=== PATIENT | female | born 1950 | race Two or more races ===

== ENCOUNTER 2018-09-25 10:31 | Emergency (ER) | payer OTHER ==
[~2018-09-25] VITALS: Ht 165.1 cm; Wt 88.0 kg
[~2018-09-25 10:31] MED LIST: CHOL100044 PO; GABA-531 PO; IBUP-2028 PO; INSU100V3 SUBCUT; LOSA25TA26 PO; METF-416 PO; NPH,100V SQ; SERT50TA12 PO; SIMV40TA5 PO; TRAM50TA3 PO
[2018-09-25] MEDS ORDERED: SODIUM CHLORIDE 0.9% 1,000 ML IV ONE (11:25)
[2018-09-25] MEDS ORDERED: KETOROLAC 30MG/ML VIAL IV STA (11:25)
[2018-09-25] MEDS ORDERED: ONDANSETRON HCL 4MG/2ML INJ IV STA (11:25)
[2018-09-25 12:25] LABS: BASOPHILS % 0.7 % (0.0-2.0); EOSINOPHILS % 2.4 % (0.0-5.0); HEMATOCRIT. 40.2 % (36.0-48.0); HEMOGLOBIN. 13.3 g/dL (12.0-16.0); LYMPHOCYTES % 19.7 % (20.0-50.0); MEAN CORPUSCULAR HEMOGLOBIN 29.1 pg (28.0-32.0); MEAN CORPUSCULAR VOLUME 88.2 fL (81.0-99.0); MEAN PLATELET VOLUME 9.6 fl (7.4-10.4); MONOCYTES % 6.1 % (2.0-8.0); NEUTROPHILS % 71.1 % (40.0-76.0); PLATELET 203 x1000/uL (130-400); RED BLOOD CELL COUNT 4.56 mill/uL (4.2-5.4); RED CELL DISTRIBUTION WIDTH 13.7 % (11.6-14.6)
[2018-09-25 12:30] LABS: CHLORIDE 103 mEq/L (98-107)
[2018-09-25 12:34] LABS: D-DIMER 0.35 mg/L FEU (<0.50); PROTHROMBIN TIME 9.8 sec (9.6-11.0)
[2018-09-25 13:36] LABS: CLARITY URINE CLEAR (CLEAR); COLOR URINE YELLOW (YELLOW); KETONES URINE NEGATIVE (NEGATIVE); LEUKOCYTE ESTERASE URINE 1+ (NEGATIVE); NITRITE URINE NEGATIVE (NEGATIVE); OCCULT BLOOD URINE NEGATIVE (NEGATIVE); PH URINE 6.5 (4.5-8.0); PROTEIN URINE NEGATIVE (NEGATIVE); SPECIFIC GRAVITY URINE 1.012 (1.005-1.030); UROBILINOGEN URINE 0.2 E.U./dL (0.2-1.0)
[2018-09-25 14:38] VITALS: BP 149/63
== END 2018-09-25 14:43 | disposition home or self-care (01) ==
LOC: ER 10:31
DX: N39.0 Urinary tract infection, site not specified (principal); K57.90 Diverticulosis of intestine, part unspecified, without perforation or abscess without bleeding; R09.1 Pleurisy; I10 Essential (primary) hypertension; E11.9 Type 2 diabetes mellitus without complications; E78.00 Pure hypercholesterolemia, unspecified; Z79.899 Other long term (current) drug therapy; Z79.4 Long term (current) use of insulin; Z79.84 Long term (current) use of oral hypoglycemic drugs
CPT/HCPCS: 36415; 71045; 74176; 80053; 81003; 83690; 83880; 84484; 85025; 85379; 85610; 87077; 87086; 93005; 96374; 96375; 99284; J1885; J2405; J7030

== ENCOUNTER 2025-03-08 09:15 | Emergency (ER) | payer OTHER ==
[~2025-03-08] VITALS: Ht 157.5 cm; Wt 85.1 kg
[~2025-03-08 09:15] MED LIST changes: +GABA-1180 PO; -GABA-531 PO; +SERT-422 PO; -SERT50TA12 PO; +SIMV-46 PO; -SIMV40TA5 PO
[2025-03-08 09:54] LABS: BASOPHILS % 0.4 % (0.0-2.0); EOSINOPHILS % 4.0 % (0.0-5.0); HEMATOCRIT. 40.4 % (36.0-48.0); HEMOGLOBIN. 13.2 g/dL (12.0-16.0); LYMPHOCYTES % 20.0 % (20.0-50.0); MEAN PLATELET VOLUME 8.7 fl (7.4-10.4); MONOCYTES % 5.2 % (2.0-8.0); NEUTROPHILS % 70.4 % (40.0-76.0); PLATELET 201 x1000/uL (130-400); RED BLOOD CELL COUNT 4.55 mill/uL (4.2-5.4); RED CELL DISTRIBUTION WIDTH 14.3 % (11.6-14.6)
[2025-03-08] MEDS: IOHEXOL-350 100 ML BOTTLE ONE (10:00)
[2025-03-08 10:08] LABS: INR 1.0
[2025-03-08 10:17] LABS: CREATININE 0.6 mg/dL (0.6-1.0)
[2025-03-08 10:18] LABS: TROPONIN I HIGH SENSITIVITY < 4 ng/L (3.0-34); UREA NITROGEN BLOOD 8 mg/dL (9-23)
[2025-03-08 10:19] LABS: ASPARTATE AMINOTRANSFERASE 19 IU/L (<34)
[2025-03-08 10:20] LABS: BILIRUBIN DIRECT 0.1 mg/dL (<=3.0); BILIRUBIN TOTAL 0.6 mg/dL (0.1-1.0); PROTEIN TOTAL 6.4 g/dL (6.0-8.3)
[2025-03-08] MEDS ORDERED: MANNITOL 20% (20GM/100ML) BAG 500ML PREMIX IV ONE (11:15)
[2025-03-08] MEDS ORDERED: MORPHINE SULFATE 4 MG/ML INJ (FOR IV/IM USE) IV ONE (11:30)
[2025-03-08] MEDS ORDERED: DEXTROSE 50% WATER 50ML SYRINGE IV PRN (11:45)
[2025-03-08] MEDS: MANNITOL 20% 250 ML IV NR (11:45)
[2025-03-08] MEDS ORDERED: ACETAMINOPHEN 650MG SUPP PR PRN ×2 (11:45→12:00)
[2025-03-08] MEDS ORDERED: IPRATROPIUM/ALBUTEROL 0.5-3(2.5)MG/3ML NEB HHN PRN (11:45)
[2025-03-08] MEDS: MORPHINE SULFATE 4 MG/ML INJ (FOR IV/IM USE) IV NR (12:00)
[2025-03-08] MEDS: PROPOFOL 10MG/ML 100ML 100 ML IV PRN (12:10)
[2025-03-08] MEDS: MORPHINE SULFATE 2 MG/ML INJ (NOT FOR IM USE) IV SCH (12:10)
[2025-03-08] MEDS ORDERED: NICARDIPINE 50 MG in SODIUM CHLORIDE 0.9% 230 ML IV PRN ×2 (12:15→12:30)
[2025-03-08] MEDS: HYDRALAZINE 20MG/ML VIAL IV PRN (12:17)
[2025-03-08 12:20] VITALS: O2SAT 100
[2025-03-08] MEDS: MORPHINE SULFATE 10 MG/ML INJ (NOT FOR IM USE) IV ONE (12:34)
[2025-03-08] MEDS ORDERED: NICARDIPINE 40 MG/200 ML PREMIX 200 ML IV PRN (12:45)
[2025-03-08 13:27] VITALS: PULSE 89; RESP 24; O2SAT 100
[2025-03-08 13:27] LABS: TRIGLYCERIDE 144.0 mg/dL (0-150)
[2025-03-08 13:28] LABS: LDL CHOLESTEROL 113.0 mg/dL (5-100)
[2025-03-08] MEDS: PROPOFOL 10MG/ML 100ML 100 ML IV SCH (13:46)
[2025-03-08] MEDS: PANTOPRAZOLE SODIUM 40 MG/VIAL IV SCH (13:46)
[2025-03-08] MEDS: BLOOD SUGAR DIAGNOSTIC STRIP TEST SCH (13:46)
[2025-03-08 14:04] LABS: CLARITY URINE CLEAR (CLEAR); COLOR URINE YELLOW (YELLOW); GLUCOSE URINE NEGATIVE (NEGATIVE); KETONES URINE NEGATIVE (NEGATIVE); LEUKOCYTE ESTERASE URINE NEGATIVE (NEGATIVE); NITRITE URINE POSITIVE (NEGATIVE); OCCULT BLOOD URINE NEGATIVE (NEGATIVE); PH URINE 7.0 (4.5-8.0); PROTEIN URINE NEGATIVE (NEGATIVE); SPECIFIC GRAVITY URINE 1.039 (1.005-1.030); UROBILINOGEN URINE 0.2 E.U./dL (0.2-1.0)
[2025-03-08 14:20] LABS: BG BASE EXCESS -1.4 mmol/L (-2.0-3.0); BG CARBOXYHEMOGLOBIN 0.4 % (0.5-1.5); BG DEOXYHEMOGLOBIN 0.4 % (0.0-5.0); BG FRACTION INSPIRED OXYGEN 100; BG HCO3 ACT 22.1 mmol/L (21.0-28.0); BG METHEMOGLOBIN 0.3 % (0.5-1.5); BG OXYGEN SATURATION 99.6 % (94.0-98.0); BG OXYHEMOGLOBIN 98.9 % (94.0-98.0); BG PCO2 34.0 mmHg (32.0-45.0); BG PEEP (cmH2O) 5.0 cmH2O; BG PH 7.431 (7.350-7.450); BG PO2 313.5 mmHg (83.0-108.0); BG SAMPLE SITE RIGHT RADIAL; BG TIDAL VOLUME(mL) 400.0 mL; BG TOTAL HEMOGLOBIN 15.4 g/dL (12.0-16.0); BG VENT MODE VENT - AC; BG VENT RATE 24.0 set
[2025-03-08 14:25] LABS: *AMPHETAMINES SCREEN URINE NEGATIVE (NEGATIVE)
[2025-03-08 14:26] LABS: *BARBITURATES SCREEN URINE NEGATIVE (NEGATIVE); *BENZODIAZEPINES SCREEN URINE NEGATIVE (NEGATIVE); *COCAINE SCREEN URINE NEGATIVE (NEGATIVE); CANNABINOID URINE SCREEN NEGATIVE (NEGATIVE); ECSTASY MDMA SCREEN URINE NEGATIVE (NEGATIVE); METHADONE URINE SCREEN NEGATIVE (NEGATIVE); OPIATES URINE SCREEN NEGATIVE (NEGATIVE); PHENCYCLIDINE URINE SCREEN NEGATIVE (NEGATIVE)
[2025-03-08 15:01] LABS: SQUAMOUS EPITHELIAL CELL URINE FEW /lpf (RARE/1+)
[2025-03-08 15:03] LABS: BACTERIA URINE 4+; RBC URINE NONE SEEN /hpf (0-2)
[2025-03-08 16:00] LABS: GLUCOSE CSF 57 mg/dL (41-75)
[2025-03-08 16:49] VITALS: PULSE 84; RESP 24; O2SAT 100
[2025-03-08 17:06] VITALS: PULSE 81; RESP 20; O2SAT 99
[2025-03-08 17:36] LABS: CSF TOTAL VOLUME 5.5 mL
[2025-03-08 17:39] LABS: CSF APPEARANCE SLIGHTLY HAZY (CLEAR)
[2025-03-08 17:40] VITALS: BP 114/51; PULSE 95; RESP 22; TEMP 36.9; O2SAT 100
== END 2025-03-08 18:34 | disposition short-term general hospital (02) ==
LOC: ER 09:15 → ENRESERV 11:07 → CANRESERV 11:07 → EDBEDREQSVC 11:30 → ENRESERV 12:24 → CANRESERV 12:24 → CANBEDREQ 13:29 → ER 18:34
DX: I67.1 Cerebral aneurysm, nonruptured (principal); E11.9 Type 2 diabetes mellitus without complications; I10 Essential (primary) hypertension; E78.00 Pure hypercholesterolemia, unspecified; Z79.4 Long term (current) use of insulin; Z98.51 Tubal ligation status; Z79.899 Other long term (current) drug therapy; Z79.84 Long term (current) use of oral hypoglycemic drugs; Z79.01 Long term (current) use of anticoagulants
CPT/HCPCS: 80061; 80076; 80305; 80048; 81003; 80320; 82945; 82962; 83036; 84157; 85025; 85610; 85730; 87205; 84484; 87070; 89050; 36415; 71045; 70496; 70498; 70450; 82805; 82375; 31500 ×2; 93005; 96365; 96375; 96376; 99291; 99292; 36600; Q9967; J0360; J2470; J2704; J2270 ×3; Z7610 ×3; 94002; 94070; J3490; J7050; G0480